=== PATIENT | male | born 1975 | race Caucasian/White ===

== ENCOUNTER 2016-03-25 11:16 | Outpatient (CLI) | payer OTHER | END 2016-03-25 11:17 | disposition home or self-care (01) | DX: G47.33 Obstructive sleep apnea (adult) (pediatric) (principal) ==

== ENCOUNTER 2016-04-27 11:04 | Outpatient (CLI) | payer OTHER | END 2016-04-27 11:05 | disposition home or self-care (01) | DX: G47.33 Obstructive sleep apnea (adult) (pediatric) (principal) ==